=== PATIENT | male | born 1935 | race Caucasian/White ===

== ENCOUNTER 2020-07-06 16:46 | Emergency (ER) | payer OTHER, SELFPAY ==
[~2020-07-06] VITALS: Ht 182.9 cm; Wt 110.7 kg
[2020-07-06 17:07] VITALS: BP_SYST 131
[2020-07-06] MEDS ORDERED: VITD400 PO (17:14)
[2020-07-06] MEDS ORDERED: ZINC100T2 PO (17:14)
[2020-07-06] MEDS ORDERED: RIVA20TA PO (17:14)
[2020-07-06] MEDS ORDERED: MECO10005 PO (17:14)
[2020-07-06] MEDS ORDERED: HYDR12.585 PO (17:14)
[2020-07-06] MEDS ORDERED: OMEG1CAP55 PO (17:14)
[2020-07-06] MEDS ORDERED: LISI40TA4 PO (17:14)
[2020-07-06] MEDS ORDERED: LYR25 PO (17:14)
[2020-07-06] MEDS ORDERED: CYM30 PO (17:16)
[2020-07-06] MEDS ORDERED: AMPICILLIN SODIUM/SULBACTAM NA 3 GM in NS 100 ML IV ONE (18:15)
[2020-07-06] MEDS ORDERED: AMPICILLIN SODIUM/SULBACTAM NA 3 GM VIAL ONE (18:32)
[2020-07-06 18:55] LABS: BASOPHILS # (AUTO) 0.1 K/uL (0.0-0.2); BASOPHILS % (AUTO) 0.6 % (0.0-2.0); EOSINOPHILS # (AUTO) 0.1 K/uL (0.0-0.4); EOSINOPHILS % (AUTO) 1.1 % (0.0-4.0); HEMATOCRIT 33.6 % (36-54); HEMOGLOBIN 10.9 g/dL (14.0-18.0); LYMPHOCYTES # (AUTO) 0.6 K/uL (1.0-5.5); LYMPHOCYTES % (AUTO) 5.4 % (20.5-51.5); MEAN CORPUSCULAR HEMOGLOBIN 29 pg (27-31); MEAN CORPUSCULAR HGB CONC 33 % (32-36); MEAN CORPUSCULAR VOLUME 90 fL (79.0-98.0); MONOCYTES # (AUTO) 1.3 K/uL (0.0-1.0); MONOCYTES % (AUTO) 10.9 % (1.7-9.3); NEUTROPHILS # (AUTO) 9.7 K/uL (1.8-7.7); PLATELET COUNT (AUTO) 182 K/uL (130-430); RED BLOOD CELL COUNT(AUTO) 3.72 MIL/uL (4.2-6.2); RED CELL DISTRIBUTION WIDTH 20.7 % (9.0-15.0); WHITE BLOOD COUNT (AUTO) 11.8 K/uL (4.8-10.8)
[2020-07-06 19:24] LABS: ANION GAP 10 (5-15); CALCIUM 8.7 mg/dL (8.4-11.0); CHLORIDE 96 mmol/L (98-107); CREATININE 2.19 mg/dL (0.55-1.30); GLUCOSE 108 mg/dL (70-99); POTASSIUM 5.1 mmol/L (3.5-5.1); SODIUM SERUM 129 mmol/L (136-145); UREA NITROGEN, BLOOD 43 mg/dL (8-21)
[2020-07-06 19:31] LABS: INR 1.3 (0.80-1.20); PROTHROMBIN TIME 13.7 SECS (9.5-12.5)
[2020-07-07 00:41] VITALS: BP_SYST 112
== END 2020-07-07 00:41 | disposition short-term general hospital (02) ==
LOC: SED 16:46
DX: K12.2 Cellulitis and abscess of mouth (principal); Z79.899 Other long term (current) drug therapy; Z20.828 Contact with and (suspected) exposure to other viral communicable diseases
CPT/HCPCS: 36415; 70487; 71045; 83605; 80048; 84484; 85025; 85610; 86140; 86886; 86900; 86901; 87040; 87086; 87426; 93005; 96365; 99285; J0295; Q9967